=== PATIENT | female | born 1985 | race Caucasian/White ===

== ENCOUNTER 2020-02-19 20:13 | Emergency (ER) | payer OTHER, MEDICAID, SELFPAY ==
[2020-02-19 20:21] VITALS: BP 148/77; PULSE 88; RESP 14; TEMP 36.4; O2SAT 99
--- NOTE | 2020-02-19 20:21 | ED.LOWEXIN ---
HPI - Extremity Injury (Lower) General Chief Complaint: Extremity Injury, Lower Stated Complaint: Left ankle swelling and pain from an injury Time Seen by Provider: 02/19/20 20:15 Source: patient Mode of arrival: Ambulatory Limitations: no limitations History of Present Illness HPI Narrative: 34-year-old female nonsmoker with noncontributory medical history presents with her daughter and a chief complaint of left ankle pain since a work related injury about 8 days ago. She works at a [employer] and a large rack fell on to her posterior left ankle in the region of her Achilles tendon. Soon thereafter she developed a large hematoma which had since resolved but patient has ongoing pain inferior to lateral malleolus and development of bruising there. She has increasing pain with ambulation and improvement with rest. She denies any numbness, tingling or weakness. She denies any pain in her knee or hip. Related Data Home Medications Medication Instructions Recorded Confirmed No Known Home Medications 02/19/20 02/19/20 Allergies Allergy/AdvReac Type Severity Reaction Status Date / Time No Known Drug Allergies Allergy Verified 02/19/20 20:23 Review of Systems Constitutional Constitutional: Denies chills, Denies fatigue, Denies fever(s), Denies frequent falls, Denies lethargy and Denies weakness Eyes Eyes: Denies change in vision, Denies eye discharge, Denies irritation and Denies loss of vision ENT Ears, Nose, Mouth, and Throat: Denies change in voice, Denies dizziness, Denies neck pain, Denies sore throat and Denies throat swelling Cardiovascular Cardiovascular: Denies chest pain, Denies irregular heart rhythm, Denies lightheadedness, Denies palpitations, Denies dyspnea, Denies dyspnea on exertion and Denies orthopnea Respiratory Respiratory: Denies cough, Denies dyspnea, Denies dyspnea on exertion and Denies wheezing Gastrointestinal Gastrointestinal: Denies abdominal pain, Denies change in bowel habits, Denies diarrhea, Denies nausea and Denies vomiting Musculoskeletal Musculoskeletal: Reports joint swelling, Denies neck pain and Denies numbness Integumentary/Breasts Skin/Breast: Denies pruritus, Denies erythema, Denies rash and Denies wounds Neurologic Neurologic: Denies behavioral changes, Denies confusion, Denies dizziness, Denies frequent falls, Denies loss of vision, Denies numbness and Denies weakness Psychiatric Psychiatric: Denies anxiety, Denies behavioral changes, Denies confusion, Denies depression, Denies homicidal ideation and Denies suicidal ideation Endocrine Endocrine: Denies fatigue, Denies flushing and Denies palpitations Hematologic/Lymphatic Hematologic/Lymphatic: Denies easy bruising Allergic/Immunologic Allergic/Immunologic: Denies urticaria, Denies throat swelling and Denies wheezing Patient History Social History Smoking Status: Never smoker Exam Narrative Exam Narrative: GEN: AOx3 and in mild distress EYES: Pupils are equal, round, and reactive to light and accommodation. Extraoccular muscles are intact bilaterally. There is no subconjunctival hemorrhage or exudate. CHEST: Lungs are clear to auscultation bilaterally and free of wheezes, rales, or rhonchi. Heart rate is regular rhythm, there are no murmurs, clicks, rubs, or gallops. There is no chest wall tenderness. ABD: Abdomen is soft and nontender. There is no guarding or rebound. Bowel sounds are normal in all 4 quadrants. There is no mass or organomegaly. EXT: Full but painful range of motion of left ankle. Pain and swelling overlying achilles, but no depression on palpation suggestion rupture. Calf squeeze results in plantar flexion. Pain on palpation of distal posterior fibula with some ecchymosis SKIN: Warm, pink, and dry. No erythema or rash Initial Vital Signs Initial Vital Signs: Vital Signs Temperature 97.6 F 02/19/20 20:21 Pulse Rate 88 02/19/20 20:21 Respiratory Rate 14 02/19/20 20:21 Blood Pressure 148/77 H 02/19/20 20:21 Pulse Oximetry 99 02/19/20 20:21 Procedures Orthopedic Splinting/Casting Injury #1: Side: left Lower Extremity Injury Location: ankle Lower Extremity Immobilizer: boot orthosis Post splinting neuro exam: intact Post splinting vascular exam: intact Placed by: Nursing Course Orders Ordered: ED Orders 02/19/20 20:26 XR ankle LT min 3V Stat Consultations Consultation #1: discussion with prevention specialist orthopedics regarding splinting. We share the opinion that boot orthosis is approrpriate with follow up and possible physical therapy and possible need for MRI Vital Signs Vital signs: Vital Signs - 8 hr 02/19/20 20:21 Temperature 97.6 F Pulse Rate 88 Respiratory Rate 14 Blood Pressure 148/77 H Pulse Oximetry 99 MDM - Extremity Injury (Lower) Imaging Data Extremity x-ray #1: Radiologist's Impression: [address] [address] XRay Report Signed Patient: Desiree Gómez [facility]#: [id number] : 1985Acct:[id number] Age/Sex: 34 / FDate of Service: 02/19/20 Loc: ED Accession Number: [id number] Procedure: XR ankle LT min 3V Ordering Provider: Juan Camacho D.O. PROCEDURE: XR ANKLE LT MIN 3V INDICATIONS: pain, and swelling TECHNIQUE: 3 views of the ankle were acquired. COMPARISON: None. FINDINGS: Bones: No fractures or dislocations. Ankle mortise is normally aligned. No suspicious bony lesions. Soft tissues: No tibiotalar joint effusion. Achilles tendon appears normal. IMPRESSION: No acute fracture. No osseous lesion. If symptoms and/or clinical suspicion for pathology persist, further assessment with repeat, or advanced imaging (e.g., CT, MRI, or bone scan) may be helpful for further assessment. Dictated by: Jamel Syed M.D. on 02/19/2020 at 20:43 Approved by: Jamel Syed M.D. on 02/19/2020 at 20:43 Discharge Plan Departure Patient Disposition: Home Clinical Impression: Ankle sprain and strain, Hematoma of left ankle Discharge Date/Time: 02/19/20 21:17 Instructions: Ankle Sprain, DI for Hematoma (Bruise) Activity Restrictions/Additional Instructions: *You have been diagnosed with [left ankle contusion with hematoma and possible sprain] *What to do: *Take medications as directed *Follow up with your primary care provider in 2-3 days, call for an appointment. Let them know you were seen in the Emergency Department and that we ask that you be seen in follow up. I have also given you contact info for the on-call orthopedist who would be happy to see you in follow-up as well *Return to ER if you should have any new, worsening or concerning symptoms Prescriptions: No Action No Known Home Medications RF: 0 Referrals: Bhaskar Boyle MD [Physician] -
--- NOTE | 2020-02-19 20:26 | DI.RAD.S_ITS ---
PROCEDURE: XR ANKLE LT MIN 3V INDICATIONS: pain, and swelling TECHNIQUE: 3 views of the ankle were acquired. COMPARISON: None. FINDINGS: Bones: No fractures or dislocations. Ankle mortise is normally aligned. No suspicious bony lesions. Soft tissues: No tibiotalar joint effusion. Achilles tendon appears normal. IMPRESSION: No acute fracture. No osseous lesion. If symptoms and/or clinical suspicion for pathology persist, further assessment with repeat, or advanced imaging (e.g., CT, MRI, or bone scan) may be helpful for further assessment. Dictated by: Jamel Syed M.D. on 02/19/2020 at 20:43 Approved by: Jamel Syed M.D. on 02/19/2020 at 20:43
== END 2020-02-19 21:17 | disposition home or self-care (01) ==
PROVIDERS: Emergency Provider Emergency Medicine
DX: S93.402A Sprain of unspecified ligament of left ankle, initial encounter (principal); S96.912A Strain of unspecified muscle and tendon at ankle and foot level, left foot, initial encounter; S90.02XA Contusion of left ankle, initial encounter; W22.8XXA Striking against or struck by other objects, initial encounter
CPT/HCPCS: 73610; 99281; 99283

== ENCOUNTER 2020-09-04 18:17 | Emergency (ER) | payer OTHER, MEDICAID, SELFPAY ==
[2020-09-04 18:20] VITALS: BP 117/59; PULSE 78; RESP 15; TEMP 36.7; O2SAT 96; BMI 34.5
[2020-09-04 18:23] VITALS: BP 117/59
[2020-09-04] MEDS: FLUORESCEIN 1 MG STRIP EYE-BOTH (18:27)
[2020-09-04] MEDS: PROPARACAINE 0.5% OPHTH SOL 1 DROPS EYE-LEFT (18:28)
--- NOTE | 2020-09-04 18:36 | ED_ITS ---
HPI - General Adult General Chief complaint: Eye Problems Stated complaint: PAINS IN THE EYE BLURRY VISION Time Seen by Provider: 09/04/20 18:19 Source: patient Mode of arrival: Ambulatory Limitations: no limitations History of Present Illness HPI narrative: 35-year-old female here for evaluation pain behind both of her eyes that radiates to her temples and down to in front of her ears. She states she has had had this discomfort for the past 15 years. She has seen an eye doctor in the past. She has also had her wisdom teeth removed because she has been told that it was putting pressure on the muscles in the area. She has been taking Tylenol at home for it without any improvement. She does feel that things have been getting worse over the past couple days to the point that now when she stands up she is vomiting. She feels that she has ?no fluid in my body? and is dehydrated. Does have blurry vision. States that both sides are equal. Has had some pain in her ears recently but no sore throat. No fevers. She has never seen a neurologist. Apparently she has seen her primary doctor in the past about this and has also followed up with a motion graphics artist. She has an appointment with Ophthalmology in the next couple days for the symptoms because they are worsening. She was told that maybe she has a blocked tear duct. She states that her primary doctor told her that they were scheduling appointments in November which is why she came to the emergency department. She does not know the name of her primary doctor. Related Data Previous Rx's Medication Instructions Recorded ondansetron 4 mg PO Q6H PRN #14 tab 09/04/20 Allergies Allergy/AdvReac Type Severity Reaction Status Date / Time No Known Drug Allergies Allergy Verified 09/04/20 18:25 Review of Systems Constitutional Constitutional: Denies fever(s) and Reports headache(s) Eyes Eyes: Reports blurry vision, Denies irritation, Denies itchy eyes and Denies spots in vision ENT Ears, Nose, Mouth, and Throat: Reports headache(s), Denies sinus pain and Denies sinus pressure Comments: Bilateral ear fullness Cardiovascular Cardiovascular: Denies chest pain and Denies dyspnea Respiratory Respiratory: Denies dyspnea Gastrointestinal Gastrointestinal: Reports nausea and Reports vomiting Integumentary/Breasts Skin/Breast: Denies rash Neurologic Neurologic: Reports headache(s) Hematologic/Lymphatic On Anticoagulants: No Allergic/Immunologic Allergic/Immunologic: Denies urticaria and Denies itchy eyes Patient History Medical History Patient denies medical problems Social History Smoking Status: Never smoker Smoking Status: Never smoker alcohol intake frequency: 0-2 drinks per day Substance Use Type: does not use Exam Initial Vital Signs Initial Vital Signs: Vital Signs Temperature 98.1 F 09/04/20 18:20 Pulse Rate 78 09/04/20 18:20 Respiratory Rate 15 09/04/20 18:20 Blood Pressure 117/59 L 09/04/20 18:20 Pulse Oximetry 96 09/04/20 18:20 Const General: cooperative, healthy appearing and comfortable Limitations: mental status not altered HENMT Head: normal to inspection and normocephalic Ears: hearing grossly normal bilaterally and TM's normal bilaterally Nose: external nose normal Face and sinus: normal facial exam Eyes General: appearance normal, both eyes and all related structures Alignment and Position: alignment normal Periorbital: periorbital findings normal Eyelids: eyelids normal Conjunctivae: conjunctivae normal Cornea: corneas normal and fluorescein used Pupils: PERRL EOM: EOM intact bilaterally Other: Intra-ocular pressure right eye 17 intra-ocular pressure left eye 16 Resp Effort & Inspection: normal respiratory effort Cardio Rate: regular rate Skin Lesions: no lesions Rashes: no rashes Neuro General: patient alert and patient awake Cognition: normal cognition Speech: speech normal Gait: normal gait Extrem General: capillary refill normal Psych Appearance: well kempt Course Orders Ordered: Discontinued Medications Fluorescein Sodium (Fluorescein 1 Mg Strip) 1 mg EYE-BOTH NOW ONE Stop: 09/04/20 18:20 Last Admin: 09/04/20 18:27 Dose: 1 mg Documented by: MERLINE Sodium Chloride (Normal Saline 0.9%) 1,000 mls @ 1,000 mls/hr IV BOLUS ONE Stop: 09/04/20 19:35 Last Infusion: 09/04/20 20:01 Dose: 0 mls/hr Documented by: Admin: 09/04/20 19:03 Dose: 1,000 mls/hr Documented by: MERLINE Ketorolac Tromethamine (Ketorolac 60 Mg/2 Ml Vial) 30 mg IV NOW ONE Stop: 09/04/20 18:37 Last Admin: 09/04/20 19:03 Dose: 30 mg Documented by: MERLINE Ondansetron HCl (Ondansetron 4 Mg/2 Ml Inj) 4 mg IV NOW ONE Stop: 09/04/20 18:37 Last Admin: 09/04/20 19:03 Dose: 4 mg Documented by: MERLINE Proparacaine HCl (Proparacaine 0.5% Ophth Hortencia) 1 drops EYE-LEFT NOW ONE Stop: 09/04/20 18:20 Last Admin: 09/04/20 18:28 Dose: 1 drop Documented by: MERLINE Vital Signs Vital signs: Vital Signs - 8 hr 09/04/20 18:20 09/04/20 18:23 09/04/20 20:35 Temperature 98.1 F Pulse Rate 78 68 Respiratory Rate 15 16 Blood Pressure 117/59 L 117/59 L 111/67 Pulse Oximetry 96 96 Medical Decision Making MDM Narrative Medical decision making narrative: Patient has a nonfocal neurologic exam. Was able to tolerate oral intake. She did state she felt better after treatment here in the ER. She states she has a follow-up with her eye provider later this week. Her symptoms have been going on for 15 years. Low suspicion for CVA. Low suspicion for TIA. Low suspicion for temporal arteritis. Low suspicion for glaucoma. Low suspicion for infection. I feel we can hold on radiologic studies. She is given return precautions. She expressed understanding and agreement. Discharge Plan Departure Patient Disposition: Home Clinical Impression: Headache, Change in vision Instructions: DI for Headache Activity Restrictions/Additional Instructions: Recommend that you drink small amounts of fluid over longer periods of time. A prescription for nausea medicine was electronically transmitted to [facility]. Keep all of your scheduled medical appointments. Contact your primary provider for follow-up. Return to the emergency department for any new symptoms. Prescriptions: New ondansetron 4 mg tablet,disintegrating 4 mg PO Q6H PRN (Reason: nausea and vomiting) Qty: 14 RF: 0
[2020-09-04] MEDS: ONDANSETRON 4 MG/2 ML INJ IV (19:03)
[2020-09-04] MEDS: KETOROLAC 60 MG/2 ML VIAL 30 MG IV (19:03)
[2020-09-04] MEDS: SODIUM CHLORIDE 0.9% 1,000 ML 1000 ML IV (19:03)
[2020-09-04 20:35] VITALS: BP 111/67; PULSE 68; RESP 16; O2SAT 96
== END 2020-09-04 20:37 | disposition home or self-care (01) ==
PROVIDERS: Emergency Provider Emergency Medicine
DX: R51.9 Headache, unspecified (principal); H53.9 Unspecified visual disturbance; R11.2 Nausea with vomiting, unspecified
CPT/HCPCS: 96361; 96374; 96375; 99281; 99284; J1885; J2405

== ENCOUNTER 2021-01-18 16:52 | Emergency (ER) | payer OTHER, MEDICAID, SELFPAY ==
[2021-01-18 17:07] VITALS: BP 126/87; PULSE 91; RESP 18; TEMP 36.6; O2SAT 96; BMI 35.5
--- NOTE | 2021-01-18 17:12 | DI.RAD.S_ITS ---
PROCEDURE: XR LUMBAR SPINE 2-3V INDICATIONS: lower back pain TECHNIQUE: 3 views of the lumbar spine were acquired. COMPARISON: None. FINDINGS: Bones: 5 [id number] vertebrae are present. There is normal bony alignment. No vertebral body compression fractures. No suspicious bony lesions. Soft tissues: Overlying bowel gas pattern is normal. No suspicious soft tissue calcifications. IMPRESSION: Minimal degenerative disc disease, along the lumbosacral spine. No subluxation, no significant facet osteoarthritis is found. A compression fracture is not identified. Dictated by: Khoa Mendoza M.D. on 01/18/2021 at 17:52 Approved by: Khoa Mendoza M.D. on 01/18/2021 at 17:52
[2021-01-18 17:42] LABS: Appearance Urine UA SL CLOUDY; Bacteria Urine None Seen; Bilirubin Urine UA NEGATIVE (NEGATIVE); Color Urine UA YELLOW; Glucose Urine UA NEGATIVE (Negative); Ketones Urine UA NEGATIVE (NEGATIVE); Leukocyte Esterase Urine UA NEGATIVE (NEGATIVE); Nitrite Urine UA NEGATIVE (Negative); Occult Blood Urine UA 3+ (Negative); Protein Urine UA NEGATIVE (Negative); Specific Gravity Urine UA >=1.030 (1.000-1.035); Urobilinogen Urine UA 0.2 E.U./dL (0.2); WBC Urine None Seen (0-5/HPF)
[2021-01-18 17:51] LABS: Amorphous Sediment Urine 2+; Culture Indicated Urine Cult Not Indicated; Mucus Urine 2+ (Negative); Squamous Epithelial Cell Urine 5-10 /HPF (0-5/HPF)
[2021-01-18 17:52] LABS: pH Urine UA 5.5 (4.5-8.0)
[2021-01-18 17:53] LABS: RBC Urine 5-10/HPF (0-5/HPF)
--- NOTE | 2021-01-18 19:21 | ED.BACK ---
HPI - Back Pain/Injury General Chief Complaint: Back Pain/Injury Stated Complaint: LOWER BACK PAIN Time Seen by Provider: 01/18/21 19:14 Source: patient Limitations: no limitations History of Present Illness HPI Narrative: Patient is a 35-year-old female here for evaluation bilateral lower back discomfort. She does report that the right-sided seems to be more painful than the left side. Has been going on for couple days however today she bent over to pick something up and she felt like her back had a spasm that is what brought her to the emergency department. States she has been taking a anti-inflammatories without improvement. No urinary symptoms. No fevers. Related Data Previous Rx's Medication Instructions Recorded ondansetron 4 mg disintegrating 4 mg PO Q6H PRN #14 tab 09/04/20 tablet cyclobenzaprine 10 mg tablet 10 mg PO TID PRN #12 tab 01/18/21 Allergies Allergy/AdvReac Type Severity Reaction Status Date / Time No Known Drug Allergies Allergy Verified 01/18/21 17:11 Review of Systems Constitutional Constitutional: Denies fever(s) Gastrointestinal Gastrointestinal: Reports system reviewed and no additional complaints, except as documented Genitourinary Genitourinary: Reports system reviewed and no additional complaints, except as documented Musculoskeletal Musculoskeletal: Reports back pain Integumentary/Breasts Skin/Breast: Denies rash Neurologic Neurologic: Denies paresthesias Hematologic/Lymphatic On Anticoagulants: No Allergic/Immunologic Allergic/Immunologic: Reports system reviewed and no additional complaints, except as documented Patient History Medical History Patient denies medical problems Social History Smoking Status: Never smoker Smoking Status: Never smoker alcohol intake frequency: 0-2 drinks per day Substance Use Type: does not use Exam Initial Vital Signs Initial Vital Signs: Vital Signs Temperature 97.9 F 01/18/21 17:07 Pulse Rate 91 H 01/18/21 17:07 Respiratory Rate 18 01/18/21 17:07 Blood Pressure 126/87 01/18/21 17:07 Pulse Oximetry 96 01/18/21 17:07 Const General: cooperative and healthy appearing HENMT Head: normal to inspection and normocephalic Eyes General: appearance normal, both eyes and all related structures Resp Effort & Inspection: normal respiratory effort Cardio Rate: regular rate Back/Spine/Pelvis Thoracic/Lumbar Spine: paraspinal tenderness, No thoraco-lumbar spasm and No thoracic spinal tenderness Skin General: no rashes or lesions noted Neuro General: patient alert, patient awake, patient oriented x3 and moves all extremities Extrem General: normal to inspection Psych Appearance: grossly normal and well kempt Course Orders Ordered: ED Orders 01/18/21 17:12 XR lumbar spine 2-3V Stat 01/18/21 17:24 Urinalysis and Microscopic Stat Vital Signs Vital signs: Vital Signs - 8 hr 01/18/21 19:29 Pulse Rate 70 Respiratory Rate 16 Blood Pressure 105/57 L Pulse Oximetry 97 MDM - Back Pain/Injury Lab Data Labs: Lab Results 01/18/21 Range/Units 17:24 Urine Color Yellow Urine Appearance Sl cloudy Urine pH 5.5 (4.5-8.0) Ur Specific [place] >=1.030 H (1.000-1.035) Urine Protein Negative (Negative) Urine Glucose (UA) Negative (Negative) g/dL Urine Ketones Negative (NEGATIVE) Urine Occult Blood 3+ H (Negative) Urine Nitrate Negative (Negative) Urine Bilirubin Negative (NEGATIVE) Urine Urobilinogen 0.2 (0.2) E.U./dL Ur Leukocyte Esterase Negative (NEGATIVE) Urine RBC 5-10/hpf H (0-5/HPF) Urine WBC None seen (0-5/HPF) Ur Squamous Epith Cells 5-10 /hpf H (0-5/HPF) Amorphous Sediment 2+ Urine Bacteria None seen (None) Urine Mucus 2+ H (Negative) Ur Culture Indicated? Cult not indicated Urine Dip Bedside Urine Glucose Negative Bedside Urine Bilirubin - Negative Bedside Urine Ketone - Negative Urine Specific [place] 1.030 Bedside Urine Occult Blood ++ Bedside Urine pH 6.0 Bedside Urine Protein - Negative Bedside Urine Urobilinogen - Negative Bedside Urine Nitrite - Negative Bedside Urine Leukocytes - Negative Esterase Imaging Data Lumbar spine x-ray: Radiologist's Impression: [address] [address] ReportSigned Patient: Desiree Gómez [facility]#: [id number]: 1985Acct:[id number]/Sex: 35 / FDate of Service: 01/18/21Loc: EDAccession Number: [id number] Procedure: XR lumbar spine 2-3V Ordering Provider: Zofia Hamilton D.O. PROCEDURE: XR LUMBAR SPINE 2-3V INDICATIONS: lower back pain TECHNIQUE: 3 views of the lumbar spine were acquired. COMPARISON: None. FINDINGS: Bones: 5 [id number] vertebrae are present. There is normal bony alignment. No vertebral body compression fractures. No suspicious bony lesions. Soft tissues: Overlying bowel gas pattern is normal. No suspicious soft tissue calcifications. IMPRESSION: Minimal degenerative disc disease, along the lumbosacral spine. No subluxation, no significant facet osteoarthritis is found. A compression fracture is not identified. Dictated by: Khoa Mendoza M.D. on 01/18/2021 at 17:52 Approved by: Khoa Mendoza M.D. on 01/18/2021 at 17:52 [facility] Narrative Medical decision making narrative: High suspicion today that her symptoms are muscular in origin. Her x-ray shows no signs of fracture. Low suspicion for cauda equina. Low suspicion for hematoma/abscess. She has not had any instrumentation of her back. No urinary symptoms. We did discuss the use of anti-inflammatories and other conservative measures. Will send home with a prescription for muscle relaxers. She is given return precautions. She expressed understanding and agreement. Discharge Plan Departure Patient Disposition: Home Clinical Impression: Strain of lumbar region Instructions: DI for Low Back Pain Activity Restrictions/Additional Instructions: I recommend that you start taking an anti-inflammatories such as Motrin/ibuprofen or Naprosyn on a daily basis. Take this with some food. You can also use the muscle relaxers that you were given a prescription for. Contact your primary doctor for follow-up. Return to the emergency department for any new or worsening symptoms Prescriptions: New cyclobenzaprine 10 mg tablet 10 mg PO TID PRN (Reason: muscle spasm) Qty: 12 RF: 0 No Action ondansetron 4 mg tablet,disintegrating 4 mg PO Q6H PRN (Reason: nausea and vomiting) Qty: 14 RF: 0
[2021-01-18 19:29] VITALS: BP 105/57; PULSE 70; RESP 16; O2SAT 97
== END 2021-01-18 19:31 | disposition home or self-care (01) ==
PROVIDERS: Emergency Medicine; Emergency Provider Emergency Medicine
DX: S39.012A Strain of muscle, fascia and tendon of lower back, initial encounter (principal)
CPT/HCPCS: 72100; 81001; 81003; 99281; 99283

== ENCOUNTER 2021-09-15 21:10 | Emergency (ER) | payer OTHER, MEDICAID, SELFPAY ==
[2021-09-15 21:25] VITALS: BP 110/55; PULSE 74; RESP 20; TEMP 37.1; O2SAT 100
--- NOTE | 2021-09-15 21:41 | DI.RAD.S_ITS ---
PROCEDURE: XR CHEST 1V INDICATIONS: chest pain TECHNIQUE: One view of the chest was acquired. COMPARISON: None. FINDINGS: Surgical changes and devices: None. Lungs and pleura: Lungs are clear. No pleural effusions or pneumothorax. Mediastinum: Mediastinal contours appear normal. Heart size is normal. Bones and chest wall: No suspicious bony lesions. Overlying soft tissues appear unremarkable. IMPRESSION: 1. No acute cardiopulmonary disease. Dictated by: Travis Cotton M.D. on 09/15/2021 at 23:03 Approved by: Travis Cotton M.D. on 09/15/2021 at 23:03
[2021-09-15 21:53] LABS: Add Manual Diff / Slide Review NO; Basophils Absolute Auto 100 /uL (0-100); Basophils Percent Auto 0.6 % (0-2); Eosinophils Absolute Auto 100 /uL (0-450); Hematocrit 35.7 % (36-46); Hemoglobin 12.2 g/dL (12.0-16.0); Lymphocytes Absolute Auto 3600 /uL (1100-4500); Lymphocytes Percent Auto 34.8 % (25-40); Mean Corpuscular Hemoglobin 30.4 PG (26-34); Mean Corpuscular Volume 89.4 fL (80-100); Monocytes Absolute Auto 700 /uL (0-900); Monocytes Percent Auto 6.6 % (3-14); Neutrophils Absolute Auto 5900 /uL (1500-7000); Platelet Count 251 X10^3/uL (150-400); Red Cell Distribution Width 13.2 % (11.6-14.8); White Blood Cell Count 10.4 X10^3/uL (4.5-11.0)
[2021-09-15 21:56] LABS: Alanine Aminotransferase 10 IU/L (<35); Albumin 4.1 g/dL (3.5-5.0); Albumin Globulin Ratio 1.3 (1.0-2.8); Alkaline Phosphatase 43 U/L (38-126); Aspartate Aminotransferase 17 IU/L (14-36); BUN Creatinine Ratio 24.1 (6-22); Bilirubin Total 0.3 mg/dL (0.2-1.3); Blood Urea Nitrogen 14 mg/dL (7-17); Calcium 8.9 mg/dL (8.4-10.2); Carbon Dioxide 29 mmol/L (22-32); Chloride 103 mmol/L (98-107); Creatine Kinase 50 U/L (30-135); Estimated Glomerular Filt Rate > 60.0 mL/min (>60); Globulin 3.1 g/dL (1.7-4.1); Glucose 98 mg/dL (70-100); HEMOLYSIS < 15 (0-50); Lipase 57 U/L (23-300); Magnesium 1.7 mg/dL (1.6-2.3); Potassium 3.8 mmol/L (3.4-5.1); Sodium 137 mmol/L (137-145); Total Protein 7.2 g/dL (6.3-8.2)
[2021-09-15 22:07] LABS: Troponin I < 0.012 ng/mL (0.01-0.034)
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
--- NOTE | 2021-09-16 00:59 | PC.NURSE ---
numbness to left hand denies any injury, no decrease in movement
== END 2021-09-16 01:00 | disposition home or self-care (01) ==
PROVIDERS: Emergency Provider Emergency Medicine
DX: G62.9 Polyneuropathy, unspecified (principal)
CPT/HCPCS: 71045; 80053; 82550; 83690; 83735; 84484; 85025; 93005; 99281; 99284

== ENCOUNTER 2022-03-03 17:19 | Emergency (ER) | payer OTHER, MEDICAID, SELFPAY ==
[2022-03-03 17:25] VITALS: BP 117/65; PULSE 68; RESP 16; TEMP 36.6; O2SAT 99; BMI 37.8
--- NOTE | 2022-03-03 18:35 | DI.US.S_ITS ---
PROCEDURE: US PERIPH VENOUS LOW EXTREM LT INDICATIONS: Left Leg pain TECHNIQUE: Real-time imaging, as well as color and pulse Doppler interrogation, were performed of the lower extremity deep veins from the inguinal ligament to the popliteal fossa. COMPARISON: None. FINDINGS: The common femoral, femoral and popliteal veins are normally compressible, and free of intraluminal thrombus. Color and pulse Doppler demonstrate normal phasic intraluminal flow. There is normal augmentation response to distal compression maneuver. IMPRESSION: No DVT in the left lower extremity. Dictated by: Avtar Winslow M.D. on 03/03/2022 at 19:34 Approved by: Avtar Winslow M.D. on 03/03/2022 at 19:36
--- NOTE | 2022-03-03 18:36 | ED_ITS ---
HPI - Extremity Problem <Isamar Javier PA-C - Last Filed: 03/03/22 19:57> General Chief complaint: Extremity Problem,Nontraumatic Stated complaint: Upper left leg pain numbeness Time Seen by Provider: 03/03/22 17:53 Source: patient Mode of arrival: Ambulatory History of Present Illness HPI Narrative: 36-year-old female with past medical history depression, anxiety presents to the ED with 3 days of left anterior thigh pain and numbness. Patient reports intermittent episodes of pain in the anterior upper thigh just below the groin in the left leg, accompanied by numbness. Patient denies urinary hesitancy, urinary incontinence, bowel incontinence, weakness, tingling. Patient denies numbness or pain anywhere else. Patient denies any trauma. Patient does endorse chronic back problems. Patient also endorses chronic leg problems which she says worsens with weight gain. Patient denies fever, chills, chest pain, shortness of breath, nausea, vomiting, abdominal pain, back pain. Patient denies history of DVTs. Patient denies smoking. Patient denies recent surgeries, estrogen use, long periods of immobilization. Patient is most concerned about blood clots. Related Data Previous Rx's Medication Instructions Recorded ondansetron 4 mg disintegrating 4 mg PO Q6H PRN nausea and 09/04/20 tablet vomiting #14 tabs cyclobenzaprine 10 mg tablet 10 mg PO TID PRN muscle spasm #12 01/18/21 tabs prednisone 20 mg tablet 20 mg PO DAILY #3 tabs 09/16/21 Allergies Allergy/AdvReac Type Severity Reaction Status Date / Time No Known Drug Allergies Allergy Verified 01/18/21 17:11 Review of Systems <Isamar Javier PA-C - Last Filed: 03/03/22 19:57> Review of Systems ROS Unobtainable: All systems reviewed & are unremarkable except as noted in HPI and below Constitutional Constitutional: Denies chills, Denies fatigue, Denies fever(s), Denies frequent falls, Denies lethargy and Denies weakness Eyes Eyes: Denies change in vision, Denies eye discharge, Denies irritation and Denies loss of vision ENT Ears, Nose, Mouth, and Throat: Denies change in voice, Denies dizziness, Denies neck pain, Denies sore throat and Denies throat swelling Cardiovascular Cardiovascular: Denies chest pain, Denies irregular heart rhythm, Denies lightheadedness, Denies palpitations, Denies dyspnea, Denies dyspnea on exertion and Denies orthopnea Respiratory Respiratory: Denies cough, Denies dyspnea, Denies dyspnea on exertion and Denies wheezing Gastrointestinal Gastrointestinal: Denies abdominal pain, Denies change in bowel habits, Denies diarrhea, Denies nausea and Denies vomiting Genitourinary Genitourinary: Denies hematuria, Denies flank pain, Denies urinary incontinence and Denies urinary urgency Musculoskeletal Musculoskeletal: Denies back pain, Denies muscle weakness, Denies neck pain, Reports numbness and Denies tingling Integumentary/Breasts Skin/Breast: Denies pruritus, Denies erythema, Denies rash and Denies wounds Neurologic Neurologic: Denies behavioral changes, Denies confusion, Denies dizziness, Denies frequent falls, Denies loss of vision, Reports numbness, Denies tingling and Denies weakness Psychiatric Psychiatric: Denies anxiety, Denies behavioral changes, Denies confusion, Denies depression, Denies homicidal ideation and Denies suicidal ideation Endocrine Endocrine: Denies fatigue, Denies flushing and Denies palpitations Hematologic/Lymphatic Hematologic/Lymphatic: Denies easy bruising Allergic/Immunologic Allergic/Immunologic: Denies urticaria, Denies throat swelling and Denies wheezi ng Patient History <Isamar Javier PA-C - Last Filed: 03/03/22 19:57> Medical History Patient denies medical problems Social History Smoking Status: Never smoker Smoking Status: Never smoker alcohol intake frequency: 0-2 drinks per day Substance Use Type: does not use Exam <Isamar Javier PA-C - Last Filed: 03/03/22 19:57> Narrative Exam Narrative: Const General:?cooperative, healthy appearing and comfortable [facility] Head:?normal to inspection Ears:?hearing grossly normal bilaterally Nose:?external nose normal Face and sinus:?normal facial exam and sinuses nontender Mouth:?oral mucosae normal Throat:?posterior oropharynx normal Eyes General:?appearance normal, both eyes and all related structures Neck Neck:?normal visual inspection and no lymphadenopathy noted Resp Effort & Inspection:?normal respiratory effort Auscultation:?clear to auscultation bilaterally Cardio Rate:?regular rate Rhythm:?regular rhythm Musculoskeletal No bruising, erythema noted on exam. No tenderness to palpation of anterior thigh. Neuro General:?patient alert, patient awake and patient oriented x3; PERRLA, CN 1 through 12 intact bilaterally, gait normal, strength and sensation intact, patient is neurologically intact Initial Vital Signs Initial Vital Signs: Vital Signs Temperature 97.8 F 03/03/22 17:25 Pulse Rate 68 03/03/22 17:25 Respiratory Rate 16 03/03/22 17:25 Blood Pressure 117/65 03/03/22 17:25 Pulse Oximetry 99 03/03/22 17:25 Oxygen Delivery Method 03/03/22 17:25 <lA Lezama MD - Last Filed: 03/04/22 08:50> Initial Vital Signs Initial Vital Signs: Vital Signs Temperature 97.8 F 03/03/22 17:25 Pulse Rate 68 03/03/22 17:25 Respiratory Rate 16 03/03/22 17:25 Blood Pressure 117/65 03/03/22 17:25 Pulse Oximetry 99 03/03/22 17:25 Oxygen Delivery Method 03/03/22 17:25 Course <Isamar Javier PA-C - Last Filed: 03/03/22 19:57> Orders Ordered: ED Orders 03/03/22 18:35 periph venous low extrem lt Stat Vital Signs Vital signs: Vital Signs - 8 hr 03/03/22 17:25 Temperature 97.8 F Pulse Rate 68 Respiratory Rate 16 Blood Pressure 117/65 Pulse Oximetry 99 Oxygen Delivery Method Room Air <Al Lezama MD - Last Filed: 03/04/22 08:50> Orders Ordered: ED Orders 03/03/22 18:35 periph venous low extrem lt Stat Vital Signs Vital signs: Vital Signs - 8 hr 03/03/22 17:25 Temperature 97.8 F Pulse Rate 68 Respiratory Rate 16 Blood Pressure 117/65 Pulse Oximetry 99 Oxygen Delivery Method Room Air MDM - Extremity (Nontraumatic) <Isamar Javier PA-C - Last Filed: 03/03/22 19:57> Imaging Data US - DVT: Radiologist's Impression: PROCEDURE:? US PERIPH VENOUS LOW EXTREM LT ? INDICATIONS:? Left Leg pain ? TECHNIQUE:? Real-time imaging, as well as color and pulse Doppler interrogation, were performed of the lower extremity deep veins from the inguinal ligament to the popliteal fossa.? ? COMPARISON:? None. ? FINDINGS:? The common femoral, femoral and popliteal veins are normally compressible, and free of intraluminal thrombus.? Color and pulse Doppler demonstrate normal phasic intraluminal flow.? There is normal augmentation response to distal compression maneuver. ? ? IMPRESSION:? No DVT in the left lower extremity. ? ? Dictated by: Avtar Winslow M.D. on 03/03/2022 at 19:34 ? ? Approved by: Avtar Winslow M.D. on 03/03/2022 at 19:36 ? MDM Narrative Medical decision making narrative: 36-year-old female with past medical history depression, anxiety presents to the ED with 3 days of left anterior thigh pain and numbness. Concern for DVT versus other musculoskeletal etiology versus neuropathy. Will obtain ultrasound. Patient declines pain medication, states it is mostly numbness that she is feeling right now. Will reassess. Ultrasound negative for DVTs. Discharge patient home with ED return precautions, follow-up with PCP for further evaluation/PT referral. Patient verbalized understanding. Discharge Plan Departure Patient Disposition: Home Clinical Impression: Acute leg pain Instructions: DI for Leg Pain Activity Restrictions/Additional Instructions: You were evaluated in the ED today for left leg pain, numbness. The ultrasound did not show any blood clots or DVTs. Your symptoms are likely due to a musculoskeletal sprain/strain or neuropathy. Please follow-up with your PCP for further evaluation treatment. Return to the ED if you notice any worsening of your symptoms, weakness. Prescriptions: No Action cyclobenzaprine 10 mg tablet 10 mg PO TID PRN (Reason: muscle spasm) Qty: 12 0RF ondansetron 4 mg tablet,disintegrating 4 mg PO Q6H PRN (Reason: nausea and vomiting) Qty: 14 0RF prednisone 20 mg tablet 20 mg PO DAILY Qty: 3 0RF Visit Report Forms: Patient Portal/API <Al Lezama MD - Last Filed: 03/04/22 08:50> [facility] ED Attending Cyndi Attestation: I was immediately available for consultation of this patient was seen and evaluated by the APC in the department.
[2022-03-03 19:27] VITALS: BP 115/53; PULSE 57; O2SAT 98
--- NOTE | 2022-03-03 19:52 | PC.NURSE ---
Pt reports worsening left upper anterior leg pain that began Thursday and comes and goes but has been worse today. Reports worsening of pain when up and walking. Pt also reports stopping her anti-anxiety medication about 3 weeks ago and has since put on 20 lbs.
== END 2022-03-03 20:02 | disposition home or self-care (01) ==
PROVIDERS: Emergency Provider Student in an Organized Health Care Education/Training Program
DX: M79.605 Pain in left leg (principal)
CPT/HCPCS: 93971; 99281; 99283

== ENCOUNTER 2022-10-07 09:42 | Emergency (ER) | payer OTHER, MEDICAID, SELFPAY ==
[2022-10-07 09:49] VITALS: BP 124/66; O2SAT 95
[2022-10-07 09:51] VITALS: BP 124/66; PULSE 80; RESP 18; TEMP 36.5; O2SAT 99; BMI 34.7
--- NOTE | 2022-10-07 09:51 | DI.RAD.S_ITS ---
PROCEDURE: XR ANKLE RT MIN 3V INDICATIONS: t-7 fall, continued swelling/bruising. TECHNIQUE: 3 views of the ankle were acquired. COMPARISON: [facility], CR, XR ANKLE LT MIN 3V, 02/19/2020, 20:30. FINDINGS: Bones: No fractures or dislocations. Ankle mortise is normally aligned. No suspicious bony lesions. Soft tissues: Positive tibiotalar joint effusion. Achilles tendon appears normal. IMPRESSION: Ankle joint effusion. No evidence acute bony abnormality of the right ankle. If clinical suspicion and/or symptoms persist, further assessment with repeat plain films, or advanced imaging (e.g., CT, MRI, or bone scan) may be helpful for further assessment. Dictated by: Harry Tang M.D. on 10/07/2022 at 10:13 Approved by: Harry Tang M.D. on 10/07/2022 at 10:21
--- NOTE | 2022-10-07 10:10 | ED_ITS ---
HPI - Extremity Injury (Lower) General Chief Complaint: Extremity Injury, Lower Stated Complaint: fell down stairs T-7 RT ankle is swelling /worse Time Seen by Provider: 10/07/22 09:48 Source: patient Mode of arrival: Wheelchair History of Present Illness HPI Narrative: 37-year-old female nonsmoker without significant medical history presents for evaluation ongoing right ankle pain. Seven days ago she was walking down some stairs and fell, rolling her right ankle and suffering an injury. She denies any head, neck or back pain, she denies any upper extremity injury. She has no hip or knee involvement. Her pain is exclusively on the lateral aspect of her right ankle. She had been seen and evaluated about a week ago and had a negative x-ray at an outside facility per her own report. She states that she is been taking Tylenol and Motrin and over the course of the week has been using ice and elevating her ankle but she is still having pain and now has bruising over the lateral aspect of her foot. She states her pain is worse with ambulation and improves with rest. She states her ankle has no numbness, tingling or weakness and does not feel unstable, it just hurts. Related Data Previous Rx's Medication Instructions Recorded ondansetron 4 mg disintegrating 4 mg PO Q6H PRN nausea and 09/04/20 tablet vomiting #14 tabs cyclobenzaprine 10 mg tablet 10 mg PO TID PRN muscle spasm #12 01/18/21 tabs prednisone 20 mg tablet 20 mg PO DAILY #3 tabs 09/16/21 Allergies Allergy/AdvReac Type Severity Reaction Status Date / Time No Known Drug Allergies Allergy Verified 01/18/21 17:11 Review of Systems Review of Systems Narrative: GENERAL: Denies chills, fatigue, malaise, fever, sweats. HEENT: Denies sinus pain, ear pain, sore throat, difficulty swallowing, dizziness. RESPIRATORY: Denies dyspnea, cough, wheezing, hemoptysis, sputum. CARDIOVASCULAR: Denies chest pain, palpitations, orthopnea, edema, GASTROINTESTINAL: Denies nausea, vomiting, abdominal pain, diarrhea, constipation, melena. : Denies dysuria, frequency, incontinence, hematuria, urinary retention. MUSCULOSKELETAL: See HPI SKIN: Denies rash, skin lesions, or other NEUROLOGIC: Denies weakness, headache, numbness, change in speech, confusion, seizures, incoordination. PSYCHIATRIC: No concerning psychosocial issues. 12 point review of systems is negative except for those stated above Patient History Medical History Patient denies medical problems Social History Smoking Status: Never smoker Smoking Status: Never smoker alcohol intake frequency: 0-2 drinks per day Substance Use Type: does not use Exam Narrative Exam Narrative: GEN: AOx3 and in mild distress EYES: Pupils are equal, round, and reactive to light and accommodation. Extraoccular muscles are intact bilaterally. There is no subconjunctival hemorrhage or exudate. CHEST: Lungs are clear to auscultation bilaterally and free of wheezes, rales, or rhonchi. Heart rate is regular rhythm, there are no murmurs, clicks, rubs, or gallops. There is no chest wall tenderness. ABD: Abdomen is soft and nontender. There is no guarding or rebound. Bowel sounds are normal in all 4 quadrants. There is no mass or organomegaly. EXT: Decreased range of motion of right ankle secondary to pain. Dark purple and yellowing dependent ecchymosis inferior to lateral malleolus, swelling and pain over lateral malleolus, no pain in forefoot, this is neurovascularly intact. Negative squeeze test, no pain at knee or proximal fibula. No obvious ligamentous instability of ankle. SKIN: Warm, pink, and dry. No erythema or rash Initial Vital Signs Initial Vital Signs: Vital Signs Blood Pressure 124/66 10/07/22 09:49 Pulse Oximetry 95 10/07/22 09:49 Course Orders Ordered: ED Orders 10/07/22 09:51 XR ankle RT min 3V Stat Vital Signs Vital signs: Vital Signs - 8 hr 10/07/22 09:51 Temperature 97.7 F Pulse Rate 80 Respiratory Rate 18 Blood Pressure 124/66 Pulse Oximetry 99 Oxygen Delivery Method Room Air MDM - Extremity Injury (Lower) MDM Narrative Medical decision making narrative: [37] year old patient presents with ankle pain and swelling after injury 1 week ago Multiple etiologies for patient's symptoms considered including, but not limited to: [Fracture, dislocation versus other] Prior Charts reviewed in our EMR Primary Historian: patient Imaging reviewed: No fracture or dislocation Patient's history and physical exam are reassuring. Repeat imaging shows no fracture. This is an isolated, closed and neurovascularly intact injury. No evidence of syndesmotic injury, no knee pain or proximal fibula pain. No ligamentous instability. We did discuss the utility of a CT scan to pursue possible occult fracture, patient would prefer to hold off at this point in time and will continue with previously stated therapies. She was given contact information for Orthopedics and encouraged to call the office to arrange follow- up Findings and discharge diagnosis discussed with patient/family followed by verbalization of understanding Return precautions discussed with patient/family whom verbalize understanding of diagnosis and plan Discharge Plan Departure Patient Disposition: Home Clinical Impression: Ankle sprain and strain Instructions: Ankle Sprain Activity Restrictions/Additional Instructions: *You have been diagnosed with [ankle injury. As we discussed your history and physical exam are reassuring and today's x-ray demonstrates no evidence of fracture or dislocation. This is most likely ongoing problems from a soft tissue injury secondary to your fall] *What to do: *Please continue to take your regular medications as directed. [ ] New medication prescriptions sent to your pharmacy: [ ] [ ] New medication written as a paper prescription [ ] No new medications given *Please follow up with your primary care provider in 2-3 days, call for an appointment. Let them know you were seen in the Emergency Department and that we ask that you be seen in follow up. We will electronically transmit a record of today's note if your PCP is in our system As we discussed I have included contact information for the on-call Orthopedic group. It would be reasonable to follow-up with them. Please call later today, let them know you were seen and evaluated in the emergency department and we would like you seen in follow-up. *Return to Emergency Department if you should have any new, worsening or concerning symptoms, such as [fever greater than 101 F, shaking chills, worseni ng pain, persistent vomiting or other bothersome symptoms] Prescriptions: No Action cyclobenzaprine 10 mg tablet 10 mg PO TID PRN (Reason: muscle spasm) Qty: 12 0RF ondansetron 4 mg tablet,disintegrating 4 mg PO Q6H PRN (Reason: nausea and vomiting) Qty: 14 0RF prednisone 20 mg tablet 20 mg PO DAILY Qty: 3 0RF Referrals: Miscellaneous,Doctor, [Primary Care Provider] - Maddy,Wan M, MD [Physician] - Stand Alone Forms: Patient Portal/API
[2022-10-07 10:58] VITALS: BP 106/57; PULSE 69; RESP 18; O2SAT 98
== END 2022-10-07 11:00 | disposition home or self-care (01) ==
PROVIDERS: Emergency Provider Emergency Medicine
DX: S93.401A Sprain of unspecified ligament of right ankle, initial encounter (principal); S96.911A Strain of unspecified muscle and tendon at ankle and foot level, right foot, initial encounter; W10.9XXA Fall (on) (from) unspecified stairs and steps, initial encounter
CPT/HCPCS: 73610; 99283